=== PATIENT | male | born 1955 | race Caucasian/White ===

== ENCOUNTER 2016-07-18 10:58 | Observation (INO) | payer OTHER ==
[2016-07-18] MEDS ORDERED: NS 1,000 ML IV ONE (11:13)
[2016-07-18] MEDS ORDERED: MIDAZOLAM 2 MG/2 ML VIAL IVP ONE (11:13)
--- NOTE | 2016-07-18 11:28 | CPEKG ---
Heart Rate: 52 RR Interval: 1154 P-R Interval: 136 QRSD Interval: 84 QT Interval: 440 QTC Interval: 410 P [place]: 43 QRS [place]: 67 T Wave [place]: 50 EKG Severity - ABNORMAL ECG - EKG Impression: SINUS RHYTHM EKG Impression: LEFT VENTRICULAR HYPERTROPHY Electronically Signed By: Foreign Camara 18-Jul-2016 14:41:38
[2016-07-18 11:58] LABS: % IMMATURE GRANULYOCYTES 0.3 % (0.0-1.1); ABSOLUTE IMMATURE GRANULOCYTES 0.02 10^3/uL (0.00-0.10); ADD DIFF? NO; ADD MORPH? NO; ADD SCAN? NO; ATYPICAL LYMPHOCYTE FLAG 0 (0-99); FRAGMENT RBC FLAG 0 (0-99); HEMATOCRIT 49.4 % (40.0-51.0); HEMOGLOBIN 17.4 g/dL (13.7-17.5); LEFT SHIFT FLG 0 (0-99); LIPEMIA HEMOLYSIS FLAG 90 (0-99); MEAN CELL HEMOGLOBIN 31.8 pg (27.9-34.1); MEAN CELL HEMOGLOBIN CONCENTR. 35.2 g/dL (32.4-36.7); MEAN CELL VOLUME 90.1 fL (81.5-99.8); MEAN PLATELET VOLUME 9.5 fL (8.7-11.7); PLATELET CLUMPS FLAG 0 (0-99); PLATELET COUNT 316 10^3/uL (150-400); RED BLOOD CELL COUNT 5.48 10^6/uL (4.40-6.38); RED CELL DISTRIBUTION WIDTH 11.5 % (11.5-15.2)
[2016-07-18 12:14] LABS: ANION GAP 9 mEq/L (8-16); CARBON DIOXIDE 27 mEq/l (22-31); CHLORIDE 106 mEq/L (97-110); CREATININE 0.8 mg/dL (0.7-1.3); GLOMERULAR FILTRATION RATE > 60; GLUCOSE 88 mg/dL (70-100); MAGNESIUM 1.8 mg/dL (1.6-2.3); POTASSIUM 4.4 mEq/L (3.5-5.2); SODIUM 142 mEq/L (134-144)
[2016-07-18 12:17] LABS: APTT 29.8 SEC (23.0-38.0); INR 1.07 (0.83-1.16); PROTIME(PATIENT) 13.8 SEC (12.0-15.0)
[2016-07-18] MEDS ORDERED: HEPARIN 10,000 UNIT/10 ML MDV ONE (12:42)
[2016-07-18] MEDS ORDERED: LIDOCAINE 1% 30 ML SDV ONE (12:42)
[2016-07-18] MEDS ORDERED: ISOPROTERENOL HCL 0.2 MG/ML 5ML AMP ONE (12:42)
[2016-07-18] MEDS ORDERED: BUPIVACAINE 0.5% 30 ML SDV ONE (12:42)
[2016-07-18] MEDS ORDERED: IOPAMIDOL (ISOVUE-370) 150 ML BTL IV ONE (12:43)
[2016-07-18] MEDS ORDERED: PROPOFOL/EMULSION 500 MG/50 ML BOTTLE IV ONE ×2 (13:05→14:19)
[2016-07-18] MEDS ORDERED: fentaNYL 100 MCG/2 ML INJ ONE (13:05)
[2016-07-18] MEDS ORDERED: DEXAMETHASONE 4 MG/ML VIAL ONE ×2 (13:05)
[2016-07-18] MEDS ORDERED: ONDANSETRON 4 MG/2 ML VIAL ONE (13:05)
[2016-07-18] MEDS ORDERED: ROCURONIUM 50 MG/5 ML VIAL ONE ×2 (13:07→14:22)
[2016-07-18] MEDS ORDERED: epHEDrine SULFATE 10 MG/ML SYR ONE ×5 (13:35→14:23)
--- NOTE | 2016-07-18 16:16 | PDDXCAT ---
Diagnostic Cath Note - . Date: 07/18/16 Casing Running Machine Tender: Jax Indication: other (Syncope, wide complex tachycardia) - Procedure Access: left groin Procedure: coronary angiography, left ventriculogram - Materials Left Heart Cath size: 6F Left Heart Cath materials: standard multipack (JL4, JR4, pigtail) - Findings-Left Heart Catheterization LM: Normal, tapered origin LAD: Mild diffuse disease, D1 with 50-70% ostial lesion LCX: Small, nondominant RCA: Dominant, mild diffuse disease Complications: None Estimated blood loss: <50ml Closure method: manual pressure Assessment: Mild diffuse disease. First diagonal branch of LAD 50-70% ostial- proximal lesion Plan: Medical management MPI stress to assess diagonal territory -d.w. back up nuclear radiologist Dr. Hernandez who reviewed films at time of procedure Proceed with EP study Intervention: None Patient Problems: Problems Problem Status Diagnosed Syncope Acute
[2016-07-18] MEDS ORDERED: ACETAMINOPHEN 325 MG TAB PO PRN (16:17)
[2016-07-18] MEDS ORDERED: OXYCODONE/APAP 5/325 TAB PO PRN (16:17)
--- NOTE | 2016-07-18 16:17 | EPPROC ---
Electrophysiology Procedure Note: DIAGNOSTIC ELECTROPHYSIOLOGIC STUDY Procedures performed: 1. Fluoroscopy 2. EP evaluation with RA/RV/LA pace/record, with arrhythmia induction 3. EP evaluation with RA/RV pace record, insert/reposition catheter, with arrhythmia induction 4. Programmed stimulation + pacing after IV drug 5. LINQ monitor implantation INDICATION: Syncope Wide complex tachycardia PROCEDURE: Catheters & Anesthesia: The patient arrived in the Electrophysiology Laboratory in the fasting state. The right clavicular region, right groin, & left groin area were prepped & draped in the usual sterile manner. Dr. Snehal Mahoney administered anesthesia. Appropriate non-invasive blood pressure, pulse oximetry & end-tidal CO2 monitoring was established. Coronary angiogram was done previously, this has been dictated separately. LFA approach. Moderate disease in D1 branch of LAD 50-70% occlusion. Dominant RCA. LVEF 75%. All catheters were placed percutaneously using the modified Seldinger technique , and advanced into position under fluoroscopic guidance. One #7 Thai deflectable octapolar electrode catheter was advanced to the His-bundle position via the left femoral vein (2mm spacing). One #7 Thai deflectable catheter with 10 pairs of electrodes was placed via the left femoral vein into the coronary sinus. Heparin was administered to keep ACT > 200 seconds. Programmed stimulation was performed from the right atrium, right ventricle and coronary sinus (left atrium). Parahisian pacing demonstrated constant H-A interval with changing V-A intervals and stimulus-A intervals during capture and loss of capture of proximal RBB proving retrograde conduction over AV node. Atrial flutter was induced x 2, required cardioversin x 1 Nonsustained atrial tachycardia, up to 4 bts, once with aberrancy, CL 320 ms was seen. Burst atrial pacing at rates >150 bpm caused LBBB and RBBB aberrancy. No sustained reentrant tachycardia was induced during programmed stimulation at baseline or during graded doses of isoproterenol up to 8 mcg/min. Ventricular programmed stimulation was performed using standard protocol (2 pacing sites, 2 basic cycle lengths, up to 3 extrastimuli at twice pacing threshold). Ventricular burst pacing and long/short sequence pacing was also performed. LINQ monitor was placed using standard technique in left parasternal area. SN [id number]. Notification rates <40 bpm >182 bpm > 3 seconds. The catheters were removed. The patient was transferred to the cardiovascular holding area in stable condition. Vascular access sheaths were removed in the holding area. There were no apparent complications. Results: A. Spontaneous Intervals: SCL 840 ms AH 50 ms HV 55 ms B. Antegrade AV ellie function (decremental pacing) FPERP 340 ms WBB CL 330 ms C. Retrograde AV ellie function (decremental pacing) FPERP 400 ms WBB CL 390 ms CONCLUSIONS 1. Normal sinus and AV node function. 2. No evidence of accessory AV pathway presence. 3. Nonsustained atrial tachycardia, once with aberrant conduction to ventricles, not targeted for ablation. 4. Sustained atrial flutter, not clinical arrhythmia, not targeted for ablation. 5. LINQ monitor implantation. 6. No apparent complications. Patient Problems: Problems Problem Status Diagnosed Syncope Acute
[2016-07-18] MEDS ORDERED: ATROPINE SULFATE 1 MG/10 ML SYR ONE (16:22)
[2016-07-18 23:57] VITALS: RESP 18
[2016-07-19 07:13] VITALS: BP 105/60; PULSE 73; TEMP 98.1; O2SAT 92
[2016-07-19] MEDS ORDERED: ASPIRIN 81 MG CHEWABLE TAB PO SCH (09:00)
[2016-07-19] MEDS ORDERED: CITALOPRAM 20 MG TAB PO SCH (09:00)
--- NOTE | 2016-07-19 10:22 | GDS ---
[f rep st] DISCHARGE SUMMARY ADMISSION DIAGNOSIS: Syncope. DISCHARGE DIAGNOSES: 1. Syncopal event. 2. Coronary artery disease. PROCEDURES DONE DURING HOSPITALIZATION: 1. Electrocardiogram. 2. Diagnostic coronary catheterization. 3. Electrophysiology study. BRIEF HISTORY: Please see H and P. The patient is a 60-year-old male who had a sudden unexplained syncopal event. He underwent a 30 day CardioNet, which was noted to have a nonsustained 14-beat wid e-complex tachycardia at 187 beats per minute. There was question if this was nonsustained ventricu lar tachycardia versus supraventricular tachycardia with aberrancy. He did have an echocardiogram d one earlier which noted to have normal EF of 60% to 65%, with ulth-[id number] dilated RV but with n ormal function. He was evaluated by Dr. Camara. Due to the wide-complex tachycardia with unexplained syncopal event, it was felt best that the patient undergo coronary catheterization to evaluate for p ossible cardiac ischemia, and if negative, then undergo electrophysiology study for evaluation of ar rhythmias. HOSPITAL COURSE: Yesterday, the patient was admitted through CVC, prepped for procedure, and taken to the electrophysiology/cardiac catheterization lab. There, from the left groin, Dr. Camara performed diagnostic coronary catheterization. It was noted that he had mild diffuse disease in the LAD with a 1st diagonal that had a 50% to 70% ostial lesion, non-dominant circumflex artery and a dominant R CA with mild diffuse disease. At that time, it appeared that the patient had normal flow down the d iagonal branch. Reviewed with Interventional Cardiology, and it was decided that at a later date keena manley would undergo a myocardial perfusion imaging study to further evaluate for possible ischemia i n the region of the diagonal. At that point, the electrophysiology study was started where it was d etcatalina that the patient had normal sinus AV node function, no evidence of accessary AV pathway pr esent. It was able to start a nonsustained atrial tachycardia once with aberrancy conduction to the ventricles, but no target for ablation was noted. The patient was also able to sustain atrial flut ter but was not ablated. No other arrhythmias were noted that would explain the patient's syncopal event. It was decided at that time, that the patient would have a LINQ monitor implantation done. After procedure was done, no complications were noted. Patient was taken back to the CVC and ultima tely to the telemetry floor for overnight observation. There he remained in sinus rhythm, he has be en up in walking unit, denying any chest pain, shortness of breath. Overnight telemetry monitoring showed no arrhythmias and no significant pauses. His vital signs remained stable. PHYSICAL EXAMINATION: GENERAL APPEARANCE: Done today, medium build, well groomed, male. He is alert oriented to person, place, time, and situation. Appears to be in no acute distress. V ITAL SIGNS: Current vital signs are blood pressure 105/60, heart rate of 73, sinus rhythm on the mo nitor, respirations 18, saturating 92% on room air. Temperature of 36.7 degrees Celsius. HEENT: H ead is normocephalic. Lips and tongue are pink and moist with no signs of cyanosis. Conjunctivae p ink. NECK: Trachea is midline. +2 carotid pulses bilateral. No auscultated bruits, no jugular ve in distention. RESPIRATORY: Lungs clear to auscultation. No rhonchi, rales or wheezes. No access ory muscle use, no intercostal muscle retraction. CARDIAC: Regular rate regular rhythm, S1, S2. N o S3, S4, rubs, gallops or murmurs noted. ABDOMEN: Soft, nontender, bowel sounds x4 quadrants. No organomegaly. No palpable masses. SKIN: Bieber, warm, dry, no cyanosis, no clubbing. No periphera l edema. VASCULAR: +2 carotids bilateral, +2 radials bilateral, +1 dorsal pedal and posterior tibi al pulses bilateral. Catheter insertion site, left femoral groin, no redness, swelling, drainage, e cchymosis hematoma noted. No auscultated bruit over insertion site. LINQ implantation, anterior ch est, mildly left lateral of sternum, incision intact with 2 dolores. No redness, swelling, drainage , ecchymosis or hematoma. Dressing change performed at this time. NEURO: Cranial nerves 2-12 jessica sly intact. LABORATORY STUDIES: Drawn on admission showed WBC of 6.34, hemoglobin of 17.4, hematocrit 49.4, ananya telet count 316. INR 1.0, sodium 142, potassium 4.4, chloride 106, CO2 of 27, BUN 17, creatinine 0. 8, glucose 88, calcium 9.0, magnesium 1.8. STUDIES: Electrocardiogram done on day of admission, shows sinus rhythm with possible LVH. Cardiac catheterization as mentioned above. Electrophysiology mentioned above. DISCHARGE DISPOSITION: Patient being discharged home in stable condition. He is under activity res trictions of not lifting more than 10 pounds for the next week. No strenuous activity until post MP I stressing. DISCHARGE MEDICATIONS: Please see discharge medication reconciliation sheet. Patient has been star [place] on aspirin therapy. He has also been started on low-dose of atorvastatin,. He will need to hav e a repeat fasting lipid and liver panel done in 6-8 weeks post starting this dosage. DISCHARGE INSTRUCTIONS: Post cardiac catheterization/electrophysiology study discharge instructions went over with the patient, including activity restrictions, monitoring for signs of infection, ble eding precautions and medication compliance. Also went over with the patient discharge instructions on LINQ Implantation, monitoring for signs of infection and equipment usage. At the time of discha rge, patient verbalizes understanding all instructions. Patient does have a followup appointment in 1 week for device and wound check for his LINQ. In 2 weeks, he has a scheduled MPI study for [facility] evaluation of diagonal branch stenosis, and then he will follow up with Dr. Camara in 1 month. At t he time of discharge, the patient verbalizes understanding of all instructions. He has been told th at any questions or concerns post discharge he is to call our office or seek medical attention immed iately. Total time spent on discharge greater than 30 minutes. /[id number]/MODL
== END 2016-07-19 10:48 | disposition home or self-care (01) ==
LOC: FCATH 10:58 → F2W 16:17
PROVIDERS: ADMIT Internal Medicine Cardiovascular Disease; ATTEND Internal Medicine Cardiovascular Disease
PROC: 0JH632Z Insertion of Monitoring Device into Chest Subcutaneous Tissue and Fascia, Percutaneous Approach (ICD-10-PCS; principal; 2016-07-18)
PROC: 4A023FZ Measurement of Cardiac Rhythm, Percutaneous Approach (ICD-10-PCS; 2016-07-18)
PROC: 5A1213Z Performance of Cardiac Pacing, Intermittent (ICD-10-PCS; 2016-07-18)
PROC: 02H73MZ Insertion of Cardiac Lead into Left Atrium, Percutaneous Approach (ICD-10-PCS; 2016-07-18)
PROC: 4A023N7 Measurement of Cardiac Sampling and Pressure, Left Heart, Percutaneous Approach (ICD-10-PCS; 2016-07-18)
PROC: B2151ZZ Fluoroscopy of Left Heart using Low Osmolar Contrast (ICD-10-PCS; 2016-07-18)
PROC: B2111ZZ Fluoroscopy of Multiple Coronary Arteries using Low Osmolar Contrast (ICD-10-PCS; 2016-07-18)
DX: R55 Syncope and collapse (principal); R00.0 Tachycardia, unspecified; I25.10 Atherosclerotic heart disease of native coronary artery without angina pectoris; Z82.49 Family history of ischemic heart disease and other diseases of the circulatory system
CPT/HCPCS: 33282; 93458; 93620; 93621; 93623; C1731; G0378; C1764; J0461; J1100; J1644; J2250; J2405; J2704; J3010; Q9967

== ENCOUNTER 2016-07-20 15:55 | Observation (INO) | payer OTHER ==
--- NOTE | 2016-07-20 16:01 | CPEKG ---
Heart Rate: 55 RR Interval: 1091 QRSD Interval: 90 QT Interval: 424 QTC Interval: 406 QRS [place]: 65 T Wave [place]: 44 EKG Severity - ABNORMAL ECG - EKG Impression: ACCELERATED JUNCTIONAL ESCAPE RHYTHM EKG Impression: LEFT VENTRICULAR HYPERTROPHY Electronically Signed By: Syeda Stephens 20-Jul-2016 20:39:50
--- NOTE | 2016-07-20 16:03 | EDPHY ---
H & P Time Seen by Provider: 07/20/16 15:57 HPI/ROS: CHIEF COMPLAINT: Junctional rhythm HISTORY OF PRESENT ILLNESS: 60-year-old male presents with a junctional cardiac rhythm. 6 weeks ago he had an episode of unexplained syncope. He was sent to Dr. Camara office where he had extensive workup, including a cardiac catheterization earlier this week, which revealed nonobstructive coronary artery disease. He also had an EP study which was unremarkable. He had a quality assurance monitor body placed. Today he felt woozy and somewhat dizzy on several episodes. He went to Dr. Camara's office and the loop monitor was reviewed and revealed episodes of junctional tachycardia, with which correlated with his episodes of feeling woozy. He was sent to the emergency department for admission and monitoring. REVIEW OF SYSTEMS: A complete 10-point review of systems was performed and is negative except for those items mentioned in the HPI. Past Medical/Surgical History: Depression, hyperlipidemia. Social History: Nonsmoker. Smoking Status: Never smoked Physical Exam: General Appearance: Alert, pleasant Eyes: Pupils equal and round, no conjunctival pallor or injection ENT, Mouth: Mucous membranes moist Neck: Normal inspection Respiratory: Lungs are clear to auscultation Cardiovascular: Regular rate and rhythm Gastrointestinal: Abdomen is soft and non-tender Neurological: A&O, nonfocal exam Skin: Warm and dry, no rash Extremities: Nontender, no pedal edema Psychiatric: Mood and affect normal Constitutional: Initial Vital Signs Temperature (C) 37 C 07/20/16 16:04 Heart Rate 60 07/20/16 16:04 Respiratory Rate 18 07/20/16 16:04 Blood Pressure 121/73 H 07/20/16 16:04 O2 Sat (%) 94 07/20/16 16:04 O2 Delivery Mode Room Air Allergies/Adverse Reactions: No Known Allergies Allergy (Verified 07/20/16 16:03) Home Medications: Medication Instructions Recorded Citalopram [CeleXA 20 MG] 20 mg PO DAILY 07/18/16 Acetaminophen [Tylenol 325mg (*)] 325 - 650 mg PO Q4HRS PRN #0 tab 07/19/16 Aspirin [Aspirin 81mg (*)] 81 mg PO DAILY #0 tab.chew 07/19/16 Atorvastatin Calcium [Lipitor 10 10 mg PO DAILY #30 tab 07/19/16 mg (*)] Medical Decision Making - Diagnostics EKG Interpretation: EKG interpreted by me reveals a junctional rhythm, rate 55, LVH. ED Course/Re-evaluation: An IV was established and labs ordered. EKG ordered. Patient placed on quality assurance monitor body. cafeteria monitor reveals episodes of junctional rhythm. During these episodes, patient feels somewhat lightheaded and woozy. Blood pressure remained adequate throughout the episodes. There is no evidence of electrolyte disorder causing the dysrhythmia. Nor is he on any medications which cause he junctional rhythm. He understands that at some point he will need a pacemaker placement, if the junctional rhythm persists. 1608: Consulted with Dr. Barron, hospitalist. He accepts admission. Differential Diagnosis: Differential diagnosis includes does not limited to acute coronary syndrome, hypotension, electrolyte abnormality, heart block. - Data Points Laboratory Results: Laboratory Results 07/20/16 16:05 07/20/16 16:05 07/20/16 07/20/16 16:05 16:05 WBC 8.57 10^3/uL 10^3/uL (3.80-9.50) RBC 5.03 10^6/uL 10^6/uL (4.40-6.38) Hgb 16.5 g/dL g/dL (13.7-17.5) Hct 46.5 % % (40.0-51.0) MCV 92.4 fL fL (81.5-99.8) MCH 32.8 pg pg (27.9-34.1) MCHC 35.5 g/dL g/dL (32.4-36.7) RDW 11.7 % % (11.5-15.2) Plt Count 281 10^3/uL 10^3/uL (150-400) MPV 9.5 fL fL (8.7-11.7) Neut % (Auto) 60.3 % % (39.3-74.2) Lymph % (Auto) 27.3 % % (15.0-45.0) Hendricks % (Auto) 10.5 % % (4.5-13.0) Eos % (Auto) 0.9 % % (0.6-7.6) Baso % (Auto) 0.8 % % (0.3-1.7) Nucleat RBC Rel Count 0.0 % % (0.0-0.2) Absolute Neuts (auto) 5.16 10^3/uL 10^3/uL (1.70-6.50) Absolute Lymphs (auto) 2.34 10^3/uL 10^3/uL (1.00-3.00) Absolute Monos (auto) 0.90 10^3/uL H 10^3/uL (0.30-0.80) Absolute Eos (auto) 0.08 10^3/uL 10^3/uL (0.03-0.40) Absolute Basos (auto) 0.07 10^3/uL 10^3/uL (0.02-0.10) Absolute Nucleated RBC 0.00 10^3/uL 10^3/uL (0-0.01) Immature Gran % 0.2 % % (0.0-1.1) Immature Gran # 0.02 10^3/uL 10^3/uL (0.00-0.10) Sodium 140 mEq/L mEq/L (134-144) Potassium 4.1 mEq/L mEq/L (3.5-5.2) Chloride 103 mEq/L mEq/L (97-110) Carbon Dioxide 26 mEq/l mEq/l (22-31) Anion Gap 11 mEq/L mEq/L (8-16) BUN 13 mg/dL mg/dL (7-23) Creatinine 0.7 mg/dL mg/dL (0.7-1.3) Estimated GFR > 60 Glucose 74 mg/dL mg/dL (70-100) Calcium 9.3 mg/dL mg/dL (8.5-10.4) Departure - Departure Disposition: [facility] Inpatient Acute Clinical Impression: Junctional rhythm Condition: Fair Report Scribed for: Syeda Stephens Report Scribed by: Regino Tse Date of Report: 07/20/16 Time of Report: 16:03 Physician Review and Approval Statement: 07/20/16 16:03 Portions of this note were transcribed by a medical terminologist. I personally performed a history, physical exam, medical decision making, and confirmed accuracy of information the transcribed note.
[2016-07-20 16:16] LABS: % IMMATURE GRANULYOCYTES 0.2 % (0.0-1.1); ABSOLUTE IMMATURE GRANULOCYTES 0.02 10^3/uL (0.00-0.10); ADD DIFF? NO; ADD MORPH? NO; ADD SCAN? NO; ATYPICAL LYMPHOCYTE FLAG 0 (0-99); FRAGMENT RBC FLAG 0 (0-99); HEMATOCRIT 46.5 % (40.0-51.0); HEMOGLOBIN 16.5 g/dL (13.7-17.5); LEFT SHIFT FLG 0 (0-99); LIPEMIA HEMOLYSIS FLAG 90 (0-99); MEAN CELL HEMOGLOBIN 32.8 pg (27.9-34.1); MEAN CELL HEMOGLOBIN CONCENTR. 35.5 g/dL (32.4-36.7); MEAN CELL VOLUME 92.4 fL (81.5-99.8); MEAN PLATELET VOLUME 9.5 fL (8.7-11.7); PLATELET CLUMPS FLAG 10 (0-99); PLATELET COUNT 281 10^3/uL (150-400); RED BLOOD CELL COUNT 5.03 10^6/uL (4.40-6.38); RED CELL DISTRIBUTION WIDTH 11.7 % (11.5-15.2)
[2016-07-20 16:31] LABS: ANION GAP 11 mEq/L (8-16); CALCIUM 9.3 mg/dL (8.5-10.4); CARBON DIOXIDE 26 mEq/l (22-31); CHLORIDE 103 mEq/L (97-110); CREATININE 0.7 mg/dL (0.7-1.3); GLOMERULAR FILTRATION RATE > 60; GLUCOSE 74 mg/dL (70-100); POTASSIUM 4.1 mEq/L (3.5-5.2); SODIUM 140 mEq/L (134-144)
[2016-07-20] MEDS ORDERED: ONDANSETRON DISINTEGRATING 4 MG TAB PO PRN (16:48)
[2016-07-20] MEDS ORDERED: ONDANSETRON 4 MG/2 ML VIAL IVP PRN (16:48)
[2016-07-20] MEDS ORDERED: ACETAMINOPHEN 325 MG TAB PO PRN (16:48)
--- NOTE | 2016-07-20 18:56 | PDCARPN ---
Cardiology Progress Note Chief Complaint: Patient reports a slow flutter in his chest when in junctional rhythm. Assessment/Plan: Assessment: Patient was direct admit to the emergency department from our office, please see Dr. Camara as note as our official consultation. 60-year-old male who underwent EP, and cardiac catheterization on 07/18 for evaluation unexplained syncopal event. Was noted to have episodes of wide complex tachycardia on Holter monitoring. Studies done on 07/18 showed non flow limiting CAD with a 50 -70% proximal diagonal branch, normal LV systolic function normal EF, no inducible sustained arrhythmias in EP study. LINQ recorder was implanted. Patient reporting feeling fine today until about 1345, in which he felt slow flutter heart rate, came to our office, and was found to be in intermittent junctional rhythm with associated symptoms of lightheadedness. Sent directly to emergency department. Laboratory studies showed no anemia, normal electrolyte and renal function. Currently in sinus rhythm. Denies of any episode of chest pain pressure or shortness of breath. Plan: Intermittent junctional rhythm: Patient noticed lightheadedness, vital signs remained stable. Not on any AV ellie agents. Dr. Camara would like to monitor the patient overnight on telemetry, for evaluation of arrhythmia. Depending on results, patient may need to have pacemaker implantation done. Will evaluate in a.m.. CAD: Recent catheterization showing no flow limitation, patient denies of any chest pain or pressure. Continue on home medication of aspirin and atorvastatin. 07/20/16 18:55 Subjective: Patient reporting no chest pain, shortness of breath, lightheadedness, orthopnea , PND, edema, near-syncope or syncopal events. Reports occasional palpitations when it junctional rhythm. Reviewed/Discussed With: other (Dr Camara) Objective: Vital Signs (8 Hrs) Temp Pulse Resp BP Pulse Ox 07/20/16 18:14 36.8 C 59 L 16 109/67 96 07/20/16 17:54 36.8 C 64 18 117/68 94 Intake/Output (24 Hrs) 07/19/16 07/20/16 07/21/16 05:59 05:59 05:59 Other: Weight 77.111 kg Result Diagrams: 07/20/16 16:05 07/20/16 16:05 - Physical Exam Constitutional: WDWN Ears, Nose, Mouth, Throat: moist mucous membranes Cardiovascular: regular rate and rhythm, no murmurs, pulses symmetric bilat, No jugular vein distention, No carotid bruit Peripheral Pulses: 1+: dorsalis-pedis (R), dorsalis-pedis (L), 2+: carotid (R), carotid (L) Respiratory: clear to auscultate bilat, no crackles, no wheezes Gastrointestinal: normoactive bowel sounds Skin: warm, no edema Neurologic: AAOx3 Psychiatric: cooperative, interactive, following commands ICD10 Worksheet Patient Problems: Problems Problem Status Onset Syncope Acute Junctional rhythm Acute
--- NOTE | 2016-07-20 19:05 | GHP ---
[f rep st] HISTORY AND PHYSICAL DATE OF ADMISSION: 07/20/2016 CHIEF COMPLAINT: Palpitations. HISTORY OF PRESENT ILLNESS: This is a 60-year-old male with no significant past medical history oth er than episode of syncope 7 weeks ago. The patient has been under the care of Dr. Foreign Camara who t ook the patient for electrophysiology procedure on 07/18/2016 where event monitor was placed at that time. While at work today, the patient had episode of palpitations while sitting at his desk. He felt "pu nky." He denied any chest pain or syncope. Once again, the patient had an EP study done by Dr. Camara on 07/18/2016 where he was noted to have nor mal sinus and AV node function with no evidence of accessory AV pathway. He was noted to have a non sustained atrial tachycardia and a LINQ monitor was placed. Today on presentation to the emergency department, he was noted to be in a junctional rhythm. Dr. Petty discussed the case with Dr. Camara who recommended further hospitalization to monitor his rhythm. PAST MEDICAL HISTORY: Syncope and noted wide-complex tachycardia. PAST SURGICAL HISTORY: 1. 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 2. Recent EP study as noted in the HPI. HOME MEDICATIONS: Celexa, Lipitor, aspirin and Tylenol. ALLERGIES: No known drug allergies. SOCIAL HISTORY: The patient has history of alcohol abuse but has been sober for 9 years. He denies any tobacco or illicit drug use. FAMILY HISTORY: Reviewed and is significant for OK in his father who ultimately underwent a 4-vesse l bypass in his 70s. REVIEW OF SYMPTOMS: Comprehensive 10-point review of systems was done and negative except as mentio geovani in HPI. PHYSICAL EXAMINATION: VITAL SIGNS: Blood pressure 121/73, pulse of 60, respiratory rate 18, O2 sat 94% on room air. Temperature afebrile. GENERAL: No acute distress. HEART: S1, S2. LUNGS: Leandro ar. No wheezes, rales or rhonchi. ABDOMEN: Soft, nontender and nondistended. No guarding or rebo und tenderness. Normoactive bowel sounds. EXTREMITIES: No clubbing or cyanosis. NEUROLOGIC: Materials Technician nial nerves 2-12 grossly intact. No focal motor or sensory deficits. SKIN: Clear. No rashes. DIAGNOSTICS: CBC: WBC is 8.5, hemoglobin 16.5, hematocrit 46.5, platelets 281. Sodium 140, potass ium 4.1, chloride 103, CO2 of 26, BUN 13, creatinine 0.7, glucose 74, calcium 9.3, magnesium 1.8 on 07/18/2016. TSH was normal, 1.3 on 06/04/2016. EKG, which I visualized and personally reviewed, he art rate 55 beats per minute with accelerated junctional escape rhythm. ASSESSMENT: This is a 60-year-old male with history of wide-complex tachycardia and previous syncop e, who recently underwent an electrophysiology study and LINQ placement, who presents to the [facility] with palpitations and junctional escape rhythm on EKG, now currently in sinus rhythm. PLAN: I discussed the case with Dr. Camara who is recommending further monitoring. The patient may ul timately require pacemaker placement which I will defer to the cardiology service. /[id number]/MODL
[2016-07-20 20:22] VITALS: O2SAT 94
--- NOTE | 2016-07-20 22:45 | CPEKG ---
Heart Rate: 56 RR Interval: 1071 P-R Interval: 144 QRSD Interval: 78 QT Interval: 436 QTC Interval: 421 P [place]: 49 QRS [place]: 62 T Wave [place]: 49 EKG Severity - ABNORMAL ECG - EKG Impression: SINUS RHYTHM COMPETING WITH JUNCTIONAL RHYTHM EKG Impression: LEFT VENTRICULAR HYPERTROPHY Electronically Signed By: Frank Arthur 21-Jul-2016 08:59:54
[2016-07-20] MEDS ORDERED: TEMAZEPAM 15 MG CAP PO PRN (23:10)
[2016-07-21 08:39] VITALS: BP 100/63; PULSE 58; RESP 15; TEMP 98
[2016-07-21] MEDS ORDERED: CITALOPRAM 20 MG TAB PO SCH (09:00)
[2016-07-21] MEDS ORDERED: ATORVASTATIN CALCIUM 10 MG TAB PO SCH (09:00)
[2016-07-21] MEDS ORDERED: ASPIRIN 81 MG CHEWABLE TAB PO SCH (09:00)
--- NOTE | 2016-07-21 13:32 | GDS ---
[f rep st] DISCHARGE SUMMARY DISCHARGE DIAGNOSES: 1. Symptomatic junctional rhythm. 2. Coronary artery disease. CONSULTATIONS: Cardiology. HISTORY OF PRESENT ILLNESS: 60 yo male with CAD who was directly admitted yesterday to the emergency room from Dr. Camara's office for a fluttering feeling in his chest when in a junctional rhythm. He recently underwent EP study with no inducible arrhythmias and cardiac catheterization 07/18 that showed no flow limitation. He has had episodes of wide-complex tachycardia on Holter monitoring. A LINQ recorder was implanted. Patient was feeling well until yesterday at 1:45 at work, but then felt a slow, fluttering heart beat, thus went to Dr. Camara's office. At that time, he was found to be in intermittent junctional rhythm with lightheadedness. HOSPITAL COURSE: 1. Symptomatic intermittent junctional rhythm: was admitted overnight to monitor on telemetry. Labs are within normal. Recent catheterization showed [id number] 50% to 70% proximal diagonal branch and normal LV function. There were no inducible sustained arrhythmias on his EP study. Patient may warrant a pacemaker in the future if becomes more symptomatic. He is to follow up with Dr. Camara with symptoms. 2. CAD. Continue statin and aspirin. DISPOSITION: Patient is stable for discharge. FOLLOWUP: With Dr. Camara. /[id number]/MODL MTDD
--- NOTE | 2016-07-21 19:09 | PDCARPN ---
Cardiology Progress Note Chief Complaint: Patient reports brief episodes of palpitation Assessment/Plan: Assessment: Patient was see at 10:30 am today. 60-year-old male who underwent EP, and cardiac catheterization on 07/18 for evaluation unexplained syncopal event. Was noted to have episodes of wide complex tachycardia on Holter monitoring. Studies done on 07/18 showed non flow limiting CAD with a 50-70% proximal diagonal branch, normal LV systolic function normal EF, no inducible sustained arrhythmias in EP study. LINQ recorder was implanted. Yesterday patient reporting feeling palpitations with lightheadedness, was evaluated office found , and was found to be in junctional rhythm. Ventricular rate greater than 50 beats per minute. Admitted to the hospital for overnight observation and telemetry monitoring. Laboratory studies showed no electrolyte abnormalities, no anemia. Patient reports through the evening, of having small episodes of similar palpitations, that correlates with junctional rhythm. Rate remained greater than 50 BPM. Vital signs remained stable. He continues to deny of any chest pain, shortness of breath, near-syncope or syncopal events. Continues cardiac monitoring overnight showed small episodes of junctional rhythm with rates remaining greater than 50 beats per minute. Underlying rhythm sinus. No other malignant arrhythmias or pauses noted. Plan: Intermittent junctional rhythm: Patient noticed lightheadedness, vital signs remained stable. Rate remain greater than 50 BPM, no near-syncope or syncopal events, Dr. Camara did speak to the patient his , feeling that pacemaker was not needed at this time due to no other malignant arrhythmias noted. Potentially patient may need pacemaker in the future, I would like to further evaluate with his Linq monitor. Patient his agree, and felt safe to go home. Patient to follow up and cardiac clinic as planned. CAD: Recent catheterization showing no flow limitation, patient denies of any chest pain or pressure. Continue on home medication of aspirin and atorvastatin. Patient will get MPI study as order. patient and told that if any problems or concerns come up after discharge , they are to call our office, or return to the hospital. 07/21/16 19:10 Subjective: Patient reports brief episodes of palpitations during the evening, no chest pain , shortness of breath, near-syncope or syncopal events. Reviewed/Discussed With: multidisciplinary team (Patient BONIFACIO RN), other (Dr Camara ) Objective: Intake/Output (24 Hrs) 0207/21/16 07/22/16 05:59 05:59 05:59 Other: Weight 77.111 kg Result Diagrams: 07/20/16 16:05 07/20/16 16:05 - Physical Exam Constitutional: WDWN, healthy appearing, no apparent distress Ears, Nose, Mouth, Throat: moist mucous membranes Cardiovascular: regular rate and rhythm, no murmurs, no rubs, no gallops, pulses symmetric bilat, No jugular vein distention, No carotid bruit Peripheral Pulses: 1+: dorsalis-pedis (R), dorsalis-pedis (L), 2+: carotid (R), carotid (L) Respiratory: clear to auscultate bilat, no crackles, no wheezes Gastrointestinal: normoactive bowel sounds Skin: no rashes, warm, other (Bilateral groin sites, catheter insertion site, no redness swelling drainage ecchymosis or hematoma. No auscultated bruits.) Neurologic: AAOx3 Psychiatric: cooperative, interactive, following commands ICD10 Worksheet Patient Problems: Problems Problem Status Onset Junctional rhythm Acute Syncope Acute
== END 2016-07-21 13:09 | disposition home or self-care (01) ==
LOC: F1N 18:02
PROVIDERS: ADMIT Family Medicine; ATTEND Family Medicine
DX: I47.1 Supraventricular tachycardia (principal); R42 Dizziness and giddiness; I25.10 Atherosclerotic heart disease of native coronary artery without angina pectoris; F32.9 Major depressive disorder, single episode, unspecified; E78.5 Hyperlipidemia, unspecified; Z82.49 Family history of ischemic heart disease and other diseases of the circulatory system
CPT/HCPCS: 93005; G0378

== ENCOUNTER 2016-07-23 19:17 | Emergency (ER) | payer OTHER ==
--- NOTE | 2016-07-23 19:25 | EDPHY ---
HPI/HX/ROS/PE/MDM Narrative: CHIEF COMPLAINT: Lightheaded, syncope HPI: The patient is a 60 y/o male arriving via EMS after a syncopal episode this evening. He reports several syncopal episodes over the two months that he is being followed by his personnel scheduler for and has an implanted loop recorder. He reports this is his 4th syncope. He has also experienced racing heart rate and irregular rate during this time period. Tonight, he was at a restaurant and began to feel claustrophobic. He stood up and walked outside, felt lightheaded and sat down. He was unconscious for approximately 1 minute. He denies any injuries. EMS found him mildly hypotensive at 100/60 that improved with IV fluids. He denies chest pain or shortness of breath at any point. He continues to feel lightheaded. REVIEW OF SYSTEMS: Aside from elements discussed in the HPI, a comprehensive 10-point review of systems was reviewed and is negative. 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 ENT:Eyes are normal to inspection. ENT inspection normal. Neck: Normal inspection. Full range of motion. Respiratory:No respiratory distress. Breath sounds normal bilaterally. Cardiovascular: Regular rate and rhythm. Strong peripheral pulses. Normal cap refill. Abdomen:The abdomen is nontender to palpation. There are no peritoneal signs. There are normal bowel sounds. Back: Normal to inspection. No tenderness to palpation. Skin: Normal color. No rash. Warm and dry. Extremities: Normal appearance. Full range of motion. Neuro: Oriented x3. Normal motor function. Normal sensory function. (Roosevelt Hankins) ED Course: IV established. Labs drawn including CBC, CHEM, troponin. 1L IV NS administered. Patient placed on threat monitoring analyst. Patient reports Dr. Camara is en route to the ED, we will also page him. The 12 lead EKG was interpreted by myself. See hard copy and/or "tracemaster" electronic copy for interpretation. We have been unable to get in contact with Dr. Camara. Dr. Porter, personnel scheduler, says he will see him as an outpatient. 2043: Consulted with Dr. Boudreaux, hospitalist, regarding admission. He requests we get the Loop Recorder interrogation to determine how soon patient will need a cardiology consult. (Roosevelt Hankins) MDM: Patient's care transferred to vt at 9:[address] Roosevelt Hankins. Patient is currently resting comfortably and has had no arrhythmias on the monitor. Vital signs remained stable. We are awaiting for recorder interrogation from [place]. 10:15 P.M. the patient's loop recorder was interrogated. There were no events this evening. The patient and family extreme relieved and are vigorously eating there sandwiches they have been saving. The patient and his are eager to go home. States he has had extensive workup for this and has been here 3 times this week. is wondering if this is more of a partial seizure because he is does not collapse during the episode but has a couple of tremors. He does not remember them. Patient is unclear as to whether not he has had arrhythmia is during the previous episodes. He is followed by Dr. Camara. I will call the Cardiology group back to confirm for but will likely send the patient home. I will also refer him to Neurology. 10:20 p.m. I discussed the case with Dr. Porter who agrees with discharge and outpatient follow-up. (Raffi Graham) - Data Points Laboratory Results: Laboratory Results 07/23/16 19:22 07/23/16 19:22 07/23/16 07/23/16 19:22 19:22 WBC 8.59 10^3/uL 10^3/uL (3.80-9.50) RBC 5.00 10^6/uL 10^6/uL (4.40-6.38) Hgb 16.7 g/dL g/dL (13.7-17.5) Hct 46.3 % % (40.0-51.0) MCV 92.6 fL fL (81.5-99.8) MCH 33.4 pg pg (27.9-34.1) MCHC 36.1 g/dL g/dL (32.4-36.7) RDW 11.5 % % (11.5-15.2) Plt Count 306 10^3/uL 10^3/uL (150-400) MPV 9.8 fL fL (8.7-11.7) Neut % (Auto) 42.3 % % (39.3-74.2) Lymph % (Auto) 43.2 % % (15.0-45.0) Williamson % (Auto) 10.4 % % (4.5-13.0) Eos % (Auto) 3.0 % % (0.6-7.6) Baso % (Auto) 0.9 % % (0.3-1.7) Nucleat RBC Rel Count 0.0 % % (0.0-0.2) Absolute Neuts (auto) 3.63 10^3/uL 10^3/uL (1.70-6.50) Absolute Lymphs (auto) 3.71 10^3/uL H 10^3/uL (1.00-3.00) Absolute Monos (auto) 0.89 10^3/uL H 10^3/uL (0.30-0.80) Absolute Eos (auto) 0.26 10^3/uL 10^3/uL (0.03-0.40) Absolute Basos (auto) 0.08 10^3/uL 10^3/uL (0.02-0.10) Absolute Nucleated RBC 0.00 10^3/uL 10^3/uL (0-0.01) Immature Gran % 0.2 % % (0.0-1.1) Immature Gran # 0.02 10^3/uL 10^3/uL (0.00-0.10) Sodium 138 mEq/L mEq/L (134-144) Potassium 4.3 mEq/L mEq/L (3.5-5.2) Chloride 101 mEq/L mEq/L (97-110) Carbon Dioxide 28 mEq/l mEq/l (22-31) Anion Gap 9 mEq/L mEq/L (8-16) BUN 19 mg/dL mg/dL (7-23) Creatinine 0.8 mg/dL mg/dL (0.7-1.3) Estimated GFR > 60 Glucose 135 mg/dL H mg/dL (70-100) Calcium 9.0 mg/dL mg/dL (8.5-10.4) Troponin I < 0.012 ng/mL ng/mL (0-0.034) Medications Given: Discontinued Medications Sodium Chloride (Ns) 1,000 mls @ 0 mls/hr IV ONCE ONE PRN Reason: Wide Open Stop: 07/23/16 19:30 Last Admin: 07/23/16 19:40 Dose: 1,000 mls General Initial Vital Signs: Initial Vital Signs Temperature (C) 36.9 C 07/23/16 19:29 Heart Rate 59 L 07/23/16 19:29 Respiratory Rate 14 07/23/16 19:29 Blood Pressure 115/75 07/23/16 19:29 O2 Sat (%) 95 07/23/16 19:29 O2 Delivery Mode Room Air Allergies/Adverse Reactions: No Known Allergies Allergy (Verified 07/20/16 16:03) Home Medications: Medication Instructions Recorded Citalopram [CeleXA 20 MG] 20 mg PO DAILY 07/18/16 Acetaminophen [Tylenol 325mg (*)] 325 - 650 mg PO Q4HRS PRN #0 tab 07/19/16 Aspirin [Aspirin 81mg (*)] 81 mg PO DAILY #0 tab.chew 07/19/16 Atorvastatin Calcium [Lipitor 10 10 mg PO DAILY #30 tab 07/19/16 mg (*)] Departure - Departure Disposition: Home, Routine, Self-Care Clinical Impression: Syncope Qualifiers: Syncope type: unspecified Qualified Code(s): R55 - Syncope and collapse Condition: Good Instructions: Syncope (ED) Referrals: ASHELY GUTIERREZ [Other] - As per Instructions Foreign Camara MD [Medical Doctor] - As per Instructions Adair Leo DO [Medical Doctor] - As per Instructions Report Scribed for: Roosevelt Hankins Report Scribed by: Flores Johnson Date of Report: 07/23/16 Time of Report: 19:25 Physician Review and Approval Statement: Portions of this note were transcribed by an ED scribe. I personally performed the history, physical exam, and medical decision making; and confirm the accuracy of the information in the transcribed note.
--- NOTE | 2016-07-23 19:27 | CPEKG ---
Heart Rate: 55 RR Interval: 1091 P-R Interval: 148 QRSD Interval: 94 QT Interval: 436 QTC Interval: 417 P [place]: 54 QRS [place]: 66 T Wave [place]: 59 EKG Severity - BORDERLINE ECG - EKG Impression: SINUS RHYTHM EKG Impression: CONSIDER RVH OR POSTERIOR INFARCT EKG Impression: UNCHANGED FROM PREVIOUS Electronically Signed By: Raffi Graham 23-Jul-2016 22:13:32
[2016-07-23] MEDS ORDERED: NS 1,000 ML IV ONE (19:29)
[2016-07-23 19:33] LABS: % IMMATURE GRANULYOCYTES 0.2 % (0.0-1.1); ABSOLUTE IMMATURE GRANULOCYTES 0.02 10^3/uL (0.00-0.10); ADD DIFF? NO; ADD MORPH? NO; ADD SCAN? NO; ATYPICAL LYMPHOCYTE FLAG 10 (0-99); FRAGMENT RBC FLAG 0 (0-99); HEMATOCRIT 46.3 % (40.0-51.0); HEMOGLOBIN 16.7 g/dL (13.7-17.5); LEFT SHIFT FLG 0 (0-99); LIPEMIA HEMOLYSIS FLAG 90 (0-99); MEAN CELL HEMOGLOBIN 33.4 pg (27.9-34.1); MEAN CELL HEMOGLOBIN CONCENTR. 36.1 g/dL (32.4-36.7); MEAN CELL VOLUME 92.6 fL (81.5-99.8); MEAN PLATELET VOLUME 9.8 fL (8.7-11.7); PLATELET CLUMPS FLAG 0 (0-99); PLATELET COUNT 306 10^3/uL (150-400); RED CELL DISTRIBUTION WIDTH 11.5 % (11.5-15.2)
[2016-07-23 19:48] LABS: ANION GAP 9 mEq/L (8-16); CARBON DIOXIDE 28 mEq/l (22-31); CHLORIDE 101 mEq/L (97-110); CREATININE 0.8 mg/dL (0.7-1.3); GLOMERULAR FILTRATION RATE > 60; GLUCOSE 135 mg/dL (70-100); POTASSIUM 4.3 mEq/L (3.5-5.2); SODIUM 138 mEq/L (134-144)
[2016-07-23 19:59] LABS: TROPONIN I < 0.012 ng/mL (0-0.034)
[2016-07-23 22:31] VITALS: BP 122/88; PULSE 80; RESP 16; TEMP 97.9; O2SAT 94
== END 2016-07-23 22:30 | disposition home or self-care (01) ==
LOC: EDUNIT#
DX: R55 Syncope and collapse (principal)

== ENCOUNTER → 2016-08-03 | Outpatient (CLI) | payer OTHER ==
--- NOTE | 2016-08-03 16:22 | CPEEG ---
DATE OF STUDY: 08/03/2016 DATE OF INTERPRETATION: 08/03/2016 INTERPRETATION: Essentially normal EEG during wakefulness and sleep. There was no definite potenti ally epileptogenic abnormalities present in the awake or sleep recordings. If clinically indicated, an extended 4-hour video EEG to capture further sustained sleep may be helpful. REPORT: This EEG contains 9-10 Hz alpha activity over the posterior head regions. There was promin ent beta frequency activity over the frontocentral head regions bilaterally. This can be physiologi c or medication effect. There was no abnormal activation at rest, during photic stimulation or hype rventilation. The patient became drowsy and fell asleep during the study. During drowsiness and sl eep, there were rare, sharply contoured waveforms of uncertain clinical significance over the left f rontal head region. There was no definite abnormal activation during drowsiness, sleep, or during t imes of arousal. If clinically indicated, an extended 4-hour video EEG with further sleep recording s may be helpful in clarifying the findings. /[id number]/MODL
== END ==
LOC: FCPNEURO 12:49
PROVIDERS: ATTEND Physician Assistant Medical
DX: R55 Syncope and collapse (principal)

== ENCOUNTER → 2016-08-09 | Outpatient (CLI) | payer OTHER ==
[~2016-08-09] MED LIST: GADOBUTROL 10 ML VIAL IVP ONE
== END ==
LOC: FIMAGING 06:50
PROVIDERS: ATTEND Physician Assistant Medical
DX: R55 Syncope and collapse (principal)
CPT/HCPCS: A9585

== ENCOUNTER → 2017-02-09 | Outpatient (CLI) | payer OTHER | LOC: CIMAGING 14:16 | PROVIDERS: ATTEND Family Medicine | DX: M79.644 Pain in right finger(s) (principal) | CPT/HCPCS: 73140-PO ==

== ENCOUNTER → 2017-03-31 | Outpatient (CLI) | payer OTHER | LOC: CIMAGING 15:30 | PROVIDERS: ATTEND Family Medicine | DX: S62.635A Displaced fracture of distal phalanx of left ring finger, initial encounter for closed fracture (principal); V19.9XXA Pedal cyclist (driver) (passenger) injured in unspecified traffic accident, initial encounter; Y93.55 Activity, bike riding | CPT/HCPCS: 73120-PO ==

== ENCOUNTER 2018-09-28 07:56 | Day surgery (SDC) | payer OTHER ==
[2018-09-28] MEDS ORDERED: LIDOCAINE 1% 300 MG/30 ML SDV SC ONE (08:00)
--- NOTE | 2018-09-28 09:34 | SUROPNOTE ---
[facility] Operative Report - Surgery PROCEDURE: LINQ EXPLANT INDICATION: DACIA OF LINQ PROCEDURE DETAILS: After consent was signed, the patient was positioned on the table in the usual sterile fashion. Lidocaine was injected around the site (palpated out), and a small incision was made to the superior aspect of the device. After the capsule was incised, the device was removed with pressure application to the inferior aspect of the device. Three dolores were placed to the incision No recovery indicated (no sedation was used) Patient to follow up with cardiology in 3-5 days No complications.
== END 2018-09-28 09:56 | disposition home or self-care (01) ==
LOC: FCATH 07:56
PROVIDERS: ATTEND Internal Medicine Cardiovascular Disease
PROC: 0JPT0PZ Removal of Cardiac Rhythm Related Device from Trunk Subcutaneous Tissue and Fascia, Open Approach (ICD-10-PCS; principal; 2018-09-28)
DX: Z09 Encounter for follow-up examination after completed treatment for conditions other than malignant neoplasm (principal); E78.5 Hyperlipidemia, unspecified